=== PATIENT | male | born 1960 | race Caucasian/White ===

== ENCOUNTER → 2016-03-02 | Outpatient (CLI) | payer BC ==
[~2016-03-02] MED LIST: ADVIL 200MG TA200 MG PO; CLARITIN 1010 MG/TAB PO; NASACORT A55 MCG/Act NS
== END ==
LOC: RAD 13:32
DX: Z00.00 Encounter for general adult medical examination without abnormal findings (principal); M19.90 Unspecified osteoarthritis, unspecified site; Z12.5 Encounter for screening for malignant neoplasm of prostate

== ENCOUNTER → 2016-03-15 | Outpatient (CLI) | payer BC | LOC: RAD 06:43 | DX: M25.512 Pain in left shoulder (principal); M25.511 Pain in right shoulder; S43.492A Other sprain of left shoulder joint, initial encounter; M19.012 Primary osteoarthritis, left shoulder; M19.011 Primary osteoarthritis, right shoulder; M75.92 Shoulder lesion, unspecified, left shoulder; M75.91 Shoulder lesion, unspecified, right shoulder ==

== ENCOUNTER → 2019-03-03 | Outpatient (CLI) | payer BC ==
[2014-09-08 17:55] VITALS: BP 122/86
[2019-03-03 09:00] LABS: HEMATOCRIT 45.6 % (42.0-52.0); HEMOGLOBIN 15.2 g/dL (13.5-18.0); MEAN CELL VOLUME 91 fl (78-100); MEAN CORPUSCULAR HEMOGLOBIN 30 pg (27-31); MEAN CORPUSCULAR HGB CONC 33 g/dL (33-37); MEAN PLATELET VOLUME 8.8 fl (7.4-10.4); PLATELET COUNT 343 K/mm3 (130-400); RED BLOOD COUNT 5.02 M/mm3 (4.20-5.60); RED CELL DISTRIBUTION WIDTH 13.7 % (11.5-14.5); WHITE BLOOD COUNT 6.9 K/mm3 (4.8-10.8)
[2019-03-03 09:09] LABS: ALBUMIN 4.2 g/dL (3.5-5.0); POTASSIUM 4.2 mmol/L (3.5-5.1)
[2019-03-03 09:10] LABS: CALCIUM 9.1 mg/dL (8.3-10.5)
[2019-03-03 09:12] LABS: TOTAL PROTEIN 6.7 g/dL (6.4-8.3)
[2019-03-03 09:14] LABS: TOTAL BILIRUBIN 0.7 mg/dL (0.2-1.2)
[2019-03-03 10:23] LABS: BAND 1 % (0-10); LYMPHOCYTE 27 % (20-51); MONOCYTE 9 % (3-10); NEUTROPHILS 57 % (42-75)
[2019-03-03 10:29] LABS: ERYTHROCYTE SEDIMENTATION RATE 3 mm/hr (0-20)
[2019-03-04 17:16] LABS: TESTOSTERONE 314 ng/dL (221-716)
== END ==
LOC: LAB 08:37
PROVIDERS: Internal Medicine
DX: Z00.00 Encounter for general adult medical examination without abnormal findings (principal); Z12.5 Encounter for screening for malignant neoplasm of prostate; E78.2 Mixed hyperlipidemia

== ENCOUNTER → 2019-03-07 | Outpatient (CLI) | payer BC ==
[2014-09-08 17:55] VITALS: BP 122/86
== END ==
LOC: RAD 08:22
DX: R06.02 Shortness of breath (principal)

== ENCOUNTER → 2020-04-07 | Outpatient (CLI) | payer BC ==
[2014-09-08 17:55] VITALS: BP 122/86
[2020-04-07 08:30] LABS: HEMATOCRIT 46.4 % (42.0-52.0); HEMOGLOBIN 15.6 g/dL (13.5-18.0); MEAN CELL VOLUME 93 fl (78-100); MEAN CORPUSCULAR HEMOGLOBIN 31 pg (27-31); RED BLOOD COUNT 5.01 M/mm3 (4.20-5.60); WHITE BLOOD COUNT 5.5 K/mm3 (4.8-10.8)
[2020-04-07 08:31] LABS: EOS # 0.4 (0.04-0.40); EOS % 6.9 % (0.0-4.0); LYMPH# 1.4 (1.50-4.00); MEAN CORPUSCULAR HGB CONC 34 g/dL (33-37); MEAN PLATELET VOLUME 8.8 fl (7.4-10.4); MONO # 0.5 (0.20-0.80); NEU # 3.2 (1.40-6.50); PLATELET COUNT 296 K/mm3 (130-400); RED CELL DISTRIBUTION WIDTH 12.9 % (11.5-14.5)
[2020-04-07 08:39] LABS: ALBUMIN 4.3 g/dL (3.5-5.0); POTASSIUM 4.2 mmol/L (3.5-5.1)
[2020-04-07 08:40] LABS: CALCIUM 8.9 mg/dL (8.3-10.5)
[2020-04-07 08:42] LABS: TOTAL PROTEIN 6.9 g/dL (6.4-8.3)
[2020-04-07 08:43] LABS: TOTAL BILIRUBIN 0.6 mg/dL (0.2-1.2)
== END ==
LOC: LAB 08:01
PROVIDERS: Internal Medicine
DX: Z00.00 Encounter for general adult medical examination without abnormal findings (principal); Z12.5 Encounter for screening for malignant neoplasm of prostate

== ENCOUNTER → 2020-10-20 | Outpatient (CLI) | payer BC ==
[2020-10-20 11:20] LABS: URINE WBC 0 /hpf (0-3)
[2020-10-20 11:31] LABS: BASO # 0.02 (0.02-0.10); EOS # 0.33 (0.04-0.40); EOS % 5.4 % (0.0-4.0); HEMATOCRIT 45.6 % (42.0-52.0); HEMOGLOBIN 15.3 g/dL (13.5-18.0); LYMPH# 1.38 (1.50-4.00); MEAN CELL VOLUME 93 fl (78-100); MEAN CORPUSCULAR HEMOGLOBIN 31 pg (27-31); MEAN CORPUSCULAR HGB CONC 34 g/dL (33-37); MEAN PLATELET VOLUME 8.8 fl (7.4-10.4); MONO # 0.53 (0.20-0.80); NEU # 3.84 (1.40-6.50); PLATELET COUNT 271 K/mm3 (130-400); RED CELL DISTRIBUTION WIDTH 12.8 % (11.5-14.5); WHITE BLOOD COUNT 6.1 K/mm3 (4.8-10.8)
[2020-10-20 11:36] LABS: ALBUMIN 4.4 g/dL (3.5-5.0)
[2020-10-20 11:37] LABS: POTASSIUM 4.4 mmol/L (3.5-5.1)
[2020-10-20 11:38] LABS: CALCIUM 10.4 mg/dL (8.3-10.5)
[2020-10-20 11:39] LABS: TOTAL PROTEIN 7.4 g/dL (6.4-8.3)
[2020-10-20 11:41] LABS: TOTAL BILIRUBIN 0.4 mg/dL (0.2-1.2)
[2020-10-20 12:06] LABS: URINE APPEARANCE CLEAR; URINE BILIRUBIN NEGATIVE (NEGATIVE); URINE BLOOD TRACE (NEGATIVE); URINE COLOR YELLOW; URINE GLUCOSE NEGATIVE (NEGATIVE); URINE KETONE NEGATIVE (NEGATIVE); URINE LEUKOCYTE ESTERASE NEGATIVE (NEGATIVE); URINE NITRATE NEGATIVE (NEGATIVE); URINE PROTEIN(semi-quant) NEGATIVE (NEGATIVE); URINE UROBILINOGEN NORMAL (NORMAL)
[2020-10-20 12:38] LABS: ERYTHROCYTE SEDIMENTATION RATE 6 mm/hr (0-20)
== END ==
LOC: LAB 11:07
PROVIDERS: Family Medicine
DX: R10.31 Right lower quadrant pain (principal)

== ENCOUNTER → 2021-02-08 | Outpatient (CLI) | payer BC | LOC: LAB 13:03 → RAD 13:03 | DX: R05.9 Cough, unspecified (principal) ==

== ENCOUNTER → 2021-03-08 | Outpatient (CLI) | payer BC ==
[2021-03-08 13:49] LABS: BASO # 0.08 K/mm3 (0.02-0.10); EOS # 1.17 K/mm3 (0.04-0.40); HEMATOCRIT 43.7 % (42.0-52.0); HEMOGLOBIN 14.7 g/dL (13.5-18.0); LYMPH# 1.65 K/mm3 (1.50-4.00); MEAN CELL VOLUME 94 fl (78-100); MEAN CORPUSCULAR HEMOGLOBIN 32 pg (27-31); MEAN CORPUSCULAR HGB CONC 34 g/dL (33-37); MEAN PLATELET VOLUME 8.5 fl (7.4-10.4); MONO # 0.61 K/mm3 (0.20-0.80); NEU # 4.25 K/mm3 (1.40-6.50); PLATELET COUNT 341 K/mm3 (130-400); RED BLOOD COUNT 4.66 M/mm3 (4.20-5.60); RED CELL DISTRIBUTION WIDTH 13.1 % (11.5-14.5); WHITE BLOOD COUNT 7.8 K/mm3 (4.8-10.8)
[2021-03-08 14:03] LABS: ALBUMIN 4.4 g/dL (3.5-5.0)
[2021-03-08 14:04] LABS: CALCIUM 9.3 mg/dL (8.3-10.5)
[2021-03-08 14:07] LABS: TOTAL BILIRUBIN 0.4 mg/dL (0.2-1.2)
[2021-03-08 15:02] LABS: ERYTHROCYTE SEDIMENTATION RATE 5 mm/hr (0-20)
== END ==
LOC: LAB 13:36
PROVIDERS: Internal Medicine
DX: R91.1 Solitary pulmonary nodule (principal)
CPT/HCPCS: Q9967

== ENCOUNTER → 2021-05-09 | Outpatient (CLI) | payer BC ==
[2021-05-09 21:29] LABS: IMMUNOGLOBULIN E, TOTAL 67 IU/mL (0-100)
[2021-05-11 05:17] LABS: ASPERGILLUS FUMIGATUS AL COUNT <0.10 kU/L (()); CLADOSPORIUM ALLERGEN COUNT <0.10 kU/L (()); COTTONWOOD TREE ALLERGEN COUNT <0.10 kU/L (()); DUST MITES (D.F.) ALLERG COUNT <0.10 kU/L (()); ELM TREE ALLERGEN COUNT <0.10 kU/L (()); OAK ALLERGEN COUNT <0.10 kU/L (())
[2021-05-11 05:18] LABS: BOX ELDER-MAPLE ALLERGEN COUNT <0.10 kU/L (())
[2021-05-11 05:19] LABS: ALTERNARIA TENUIS CNT <0.10 kU/L (()); BERMUDA GRASS ALLERGEN COUNT <0.10 kU/L (()); CAT DANDER ALLERGEN COUNT <0.10 kU/L (()); COCKROACH ALLERGEN COUNT <0.10 kU/L (()); DOG DANDER ALLERGEN COUNT <0.10 kU/L (()); DUST MITES (D.P.) ALLERG COUNT <0.10 kU/L (()); FIREBUSH ALLERGEN COUNT <0.10 kU/L (()); ROUGH MARSH ELDER ALLERG COUNT <0.10 kU/L (()); RUSSIAN THISTLE ALLERGEN COUNT <0.10 kU/L (()); SHORT RAGWEED ALLERGEN COUNT <0.10 kU/L (())
== END ==
LOC: LAB 09:38
PROVIDERS: Internal Medicine
DX: Z00.00 Encounter for general adult medical examination without abnormal findings (principal); Z12.5 Encounter for screening for malignant neoplasm of prostate; J20.9 Acute bronchitis, unspecified; K21.9 Gastro-esophageal reflux disease without esophagitis; J32.9 Chronic sinusitis, unspecified

== ENCOUNTER → 2021-05-20 | Outpatient (CLI) | payer BC | LOC: LAB 07:12 | DX: J32.9 Chronic sinusitis, unspecified (principal) ==

== ENCOUNTER → 2021-05-23 | Outpatient (CLI) | payer BC | LOC: RAD 09:51 | DX: I65.29 Occlusion and stenosis of unspecified carotid artery (principal) ==

== ENCOUNTER → 2021-11-01 | Outpatient (CLI) | payer BC | LOC: RAD 07:54 | DX: R91.1 Solitary pulmonary nodule (principal) | CPT/HCPCS: Q9967 ==